=== PATIENT | male | born 1965 | race Caucasian/White ===

== ENCOUNTER → 2022-03-23 | Outpatient (CLI) | payer MEDICARE ==
[~2022-03-23] MED LIST: ASPIRIN ADULT L81 M2 PO; CARVEDILOL3.125 MG PO; CLOPIDOGREL75 MG PO; DIVALPROEX SOD500 M1 PO; LIPITOR80 MG PO; QUETIAPINE FUM400 M1 PO
== END | disposition home or self-care (01) ==
LOC: CARD 01:29
PROVIDERS: ATTEND Internal Medicine
DX: I42.9 Cardiomyopathy, unspecified (principal); I63.9 Cerebral infarction, unspecified; R94.31 Abnormal electrocardiogram [ECG] [EKG]; R07.9 Chest pain, unspecified